=== PATIENT | female | born 1985 | race Caucasian/White ===

== ENCOUNTER 2016-07-20 14:00 | Inpatient (IN) | payer MEDICAID, OTHER ==
[2016-07-20] MEDS ORDERED: Sodium Chloride 0.9% 1000 ML 1,000 ML ONE ×2 (14:39→17:33)
[2016-07-20] MEDS ORDERED: Sodium Chloride 0.9% 1000 ML 1,000 ML IV STA ×2 (14:40→17:32)
--- NOTE | 2016-07-20 15:12 | ERPHSYRPT ---
- History of Present Illness Time Seen by Provider: 07/20/16 15:06 Source: patient Exam Limitations: no limitations Patient Subjective Stated Complaint: cough, left lateral rib pain for a few days. n/v/d today Triage Nursing Assessment: ambulated to room per self. skin w/d, pale. resp nonlabored. abd soft. left lateral ribs hurt with deep breath Physician History: The patient is a 31-year-old female who is 17 weeks complains of a cough for one week that has worsened the last 3 days. For the last 3 days she also has experienced nausea vomiting and diarrhea. She has some mild left- sided abdominal pain that is high up near the chest that hurts to take a deep breath. She is a little bit lightheaded. No influenza vaccine. Fever. Timing/Duration: week(s) (1) Cough Quality/Degree: productive cough (brown) Possible Cause: occasional episodes Modifying Factors: Improves With: coughing, deep breath Associated Symptoms: fever, cough, sore throat Allergies/Adverse Reactions: No Known Drug Allergies Allergy (Verified 07/20/16 14:34) Home Medications: Vits W-Ca,Fe,FA(<1Mg) [] 1 each PO DAILY 07/20/16 [History] Hx Tetanus, Diphtheria Vaccination/Date Given: No (unknown) Hx Influenza Vaccination/Date Given: No Hx Pneumococcal Vaccination/Date Given: No - Review of Systems Constitutional: Fever Eyes: No Symptoms Ears, Nose, & Throat: Throat Pain Respiratory: Cough Cardiac: Chest Pain Abdominal/Gastrointestinal: Abdominal Pain, Nausea, Vomiting, Diarrhea Genitourinary Symptoms: , No Dysuria Musculoskeletal: No Back Pain, No Neck Pain Skin: No Rash Neurological: No Dizziness, No Focal Weakness, No Sensory Changes Psychological: No Symptoms Endocrine: No Symptoms Hematologic/Lymphatic: No Symptoms Immunological/Allergic: No Symptoms All Other Systems: Reviewed and Negative - Past Medical History Pertinent Past Medical History: No - Past Surgical History Past Surgical History: Yes Gastrointestinal: Cholecystectomy Female Surgical History: Section Other Surgical History: - Social History Smoking Status: Current every day smoker How long have you smoked: 11 Exposure to second hand smoke: No Drug Use: none Patient Lives Alone: No - Female History Hx Now: Yes - Nursing Vital Signs Nursing Vital Signs: Initial Vital Signs Temperature 97.3 F Temperature Source Oral Pulse Rate 80 Respiratory Rate 16 Blood Pressure [] 104/60 Pain Intensity 7 - Physical Exam General Appearance: no apparent distress, alert Eye Exam: PERRL/EOMI, eyes nml inspection Ears, Nose, Throat Exam: normal ENT inspection, TMs normal, pharynx normal, moist mucous membranes Neck Exam: normal inspection, non-tender, supple, full range of motion Respiratory Exam: normal breath sounds, lungs clear, No respiratory distress Cardiovascular Exam: tachycardia Gastrointestinal/Abdomen Exam: soft, No tenderness Pelvic Exam: not done Rectal Exam: not done Back Exam: normal inspection, No CVA tenderness, No vertebral tenderness Extremity Exam: normal inspection, normal range of motion Neurologic Exam: alert, oriented x 3, cooperative, normal mood/affect, sensation nml, No motor deficits Skin Exam: normal color, warm, dry, No rash Lymphatic Exam: No adenopathy SpO2 Interpretation: normal SpO2: 99 Oxygen Delivery: Room Air - Radiology Exams Chest X-ray Interpretation: Teleradiologist Report, Pneumonia (LLL pneumonia) Ordered Tests: Active Orders 24 hr Category Date Time Status IV Insertion STAT Care 07/20/16 15:15 Active CHEST 2 VIEWS (PA AND LAT) Stat Exams 07/20/16 16:22 Taken BMP Stat Lab 07/20/16 15:27 Completed CBC W DIFF Stat Lab 07/20/16 15:27 Completed Lactic Acid Stat Lab 07/20/16 16:01 Completed Manual Differential NC Stat Lab 07/20/16 15:27 Completed UA W/ MICROSCOPIC Stat Lab 07/20/16 15:16 Completed Medication Summary Generic Name Dose Route Start Last Admin Trade Name Freq PRN Reason Stop Dose Admin Sodium Chloride 1,000 mls @ 999 mls/hr 07/20/16 17:32 07/20/16 18:08 Sodium Chloride 0.9% 1000 Ml IV 07/20/16 18:32 999 mls/hr .Q1H1M STA Administration Discontinued Medications Generic Name Dose Route Start Last Admin Trade Name Freq PRN Reason Stop Dose Admin Sodium Chloride 1,000 mls @ 999 mls/hr 07/20/16 14:40 07/20/16 14:43 Sodium Chloride 0.9% 1000 Ml IV 07/20/16 15:40 999 mls/hr .Q1H1M STA Administration Sodium Chloride Confirm 07/20/16 14:39 Sodium Chloride 0.9% 1000 Ml Administered 07/20/16 14:40 Dose 1,000 mls @ ud .ROUTE .STK-MED ONE Ceftriaxone Sodium/Dextrose 50 mls @ 100 mls/hr 07/20/16 17:24 07/20/16 17:31 Rocephin 1 Gm-D5w 50 Ml Bag IV 07/20/16 17:53 100 mls/hr STAT ONE Administration Ceftriaxone Sodium/Dextrose Confirm 07/20/16 17:27 Rocephin 1 Gm-D5w 50 Ml Bag Administered 07/20/16 17:28 Dose 50 mls @ ud IV .STK-MED ONE Sodium Chloride Confirm 07/20/16 17:33 Sodium Chloride 0.9% 1000 Ml Administered 07/20/16 17:34 Dose 1,000 mls @ ud .ROUTE .STK-MED ONE Ondansetron HCl 4 mg 07/20/16 15:16 07/20/16 15:24 Zofran 4 Mg/2 Ml Vial IV 07/20/16 15:17 4 mg STAT ONE Administration Ondansetron HCl Confirm 07/20/16 15:22 Zofran 4 Mg/2 Ml Vial Administered 07/20/16 15:23 Dose 4 mg .ROUTE .STK-MED ONE Lab/Rad Data: Laboratory Result Diagrams 07/20/16 15:27 07/20/16 15:27 Laboratory Results 07/20/16 07/20/16 07/20/16 Range/Units 16:01 15:27 15:27 WBC (4.0-10.5) K/mm3 RBC (4.1-5.4) M/mm3 Hgb (12.0-16.0) gm/dl Hct (35-47) % MCV (78-100) fl MCH (26-32) pg MCHC (32-36) g/dl RDW (11.5-14.0) % Plt Count (150-450) K/mm3 MPV (6-9.5) fl Segmented Neutrophils (36.0-66.0) % Band Neutrophils (0.0-2.0) % Lymphocytes (Manual) (24-44) % Platelet Estimate (NORMAL) Poikilocytosis Anisocytosis Sodium 135 L (136-145) mEq/L Potassium 3.5 (3.5-5.1) mEq/L Chloride 96 L (98-107) mEq/L Carbon Dioxide 15.2 L* (21-32) mEq/L Anion Gap 27.1 H (5-15) MEQ/L BUN 21 H (9-20) mg/dL Creatinine 1.36 H (0.55-1.30) mg/dl Estimated GFR 49 ML/MIN Glucose 69 L (70-110) MG/DL Lactic Acid 4.6 H (0.4-2.0) Calcium 9.3 (8.5-10.1) mg/dL Ur Collection Type Urine Color (YELLOW) Urine Appearance (CLEAR) Urine pH (5-6) Ur Specific [place] (1.005-1.025) Urine Protein (Negative) Urine Glucose (UA) (NEGATIVE) mg/dL Urine Ketones (NEGATIVE) Urine Nitrite (NEGATIVE) Urine Bilirubin (NEGATIVE) Urine Urobilinogen (0-1) mg/dL Urine WBC (Auto) (NEGATIVE) Urine RBC (Auto) (0-5) Arthur/ul Urine Microscopic RBC (0-2) /HPF Urine Microscopic WBC (0-5) /HPF Ur Epithelial Cells (FEW) /HPF Urine Bacteria (NEGATIVE) /HPF Resp Infection Panel POSITIVE (Negative) Specimen Received 07/20/16 07/20/16 Range/Units 15:27 15:16 WBC 24.8 H (4.0-10.5) K/mm3 RBC 3.54 L (4.1-5.4) M/mm3 Hgb 11.1 L (12.0-16.0) gm/dl Hct 32.6 L (35-47) % MCV 92.1 (78-100) fl MCH 31.3 (26-32) pg MCHC 34.0 (32-36) g/dl RDW 13.7 (11.5-14.0) % Plt Count 181 (150-450) K/mm3 MPV 12.3 H (6-9.5) fl Segmented Neutrophils 88 H (36.0-66.0) % Band Neutrophils 6 H (0.0-2.0) % Lymphocytes (Manual) 6 L (24-44) % Platelet Estimate NORMAL (NORMAL) Poikilocytosis 1+ Anisocytosis 1+ Sodium (136-145) mEq/L Potassium (3.5-5.1) mEq/L Chloride (98-107) mEq/L Carbon Dioxide (21-32) mEq/L Anion Gap (5-15) MEQ/L BUN (9-20) mg/dL Creatinine (0.55-1.30) mg/dl Estimated GFR ML/MIN Glucose (70-110) MG/DL Lactic Acid (0.4-2.0) Calcium (8.5-10.1) mg/dL Ur Collection Type CLEAN CATCH Urine Color YELLOW (YELLOW) Urine Appearance CLOUDY (CLEAR) Urine pH 5.0 (5-6) Ur Specific [place] >=1.030 (1.005-1.025) Urine Protein 100 (Negative) Urine Glucose (UA) NEGATIVE (NEGATIVE) mg/dL Urine Ketones TRACE (NEGATIVE) Urine Nitrite NEGATIVE (NEGATIVE) Urine Bilirubin SMALL (NEGATIVE) Urine Urobilinogen 0.2 (0-1) mg/dL Urine WBC (Auto) NEGATIVE (NEGATIVE) Urine RBC (Auto) MODERATE (0-5) Arthur/ul Urine Microscopic RBC 5-10 (0-2) /HPF Urine Microscopic WBC 2-5 (0-5) /HPF Ur Epithelial Cells MANY (FEW) /HPF Urine Bacteria MANY (NEGATIVE) /HPF Resp Infection Panel (Negative) Specimen Received 0204 1530 - Progress Progress: improved Air Movement: good Blood Culture(s) Obtained: Yes Antibiotics given: Yes Discussed with : Serge Will see patient in: hospital (full admit) Counseled pt/family regarding: lab results, diagnosis, rad results - Departure Time of Disposition: 18:22 Departure Disposition: In-patient Admission Clinical Impression: Pneumonia, Sepsis Condition: Good Critical Care Time: Yes Critical Care Time(excluding separately billable procedures): 30-74 minutes
[2016-07-20] MEDS ORDERED: Zofran 4 MG/2 ML VIAL IV ONE (15:16)
[2016-07-20] MEDS ORDERED: Zofran 4 MG/2 ML VIAL ONE (15:22)
[2016-07-20 15:29] LABS: Mean Cell Volume 92.1 fl (78-100); Mean Platelet Volume 12.3 fl (6-9.5); Platelet Count 181 K/mm3 (150-450); Red Blood Count 3.54 M/mm3 (4.1-5.4); Red Cell Distribution Width 13.7 % (11.5-14.0); White Blood Count 24.8 K/mm3 (4.0-10.5)
[2016-07-20 15:48] LABS: ANION GAP 27.1 MEQ/L (5-15); Potassium 3.5 mEq/L (3.5-5.1)
[2016-07-20 15:52] LABS: Carbon Dioxide 15.2 mEq/L (21-32); Mean Corpuscular Hemoglobin 31.3 pg (26-32)
[2016-07-20 16:04] LABS: ANISOCYTOSIS 1+; BAND 6 % (0.0-2.0); Platelet Estimate NORMAL (NORMAL); Poikilocytosis 1+; Total Cells Counted 100
[2016-07-20 16:08] LABS: Collection Type CLEAN CATCH
[2016-07-20 16:09] LABS: COMPLETE URINE MICROSCOPIC? YES
[2016-07-20 16:21] LABS: Bacteria MANY /HPF (NEGATIVE); Epithelial Cells MANY /HPF (FEW)
[2016-07-20] MEDS ORDERED: ROCEPHIN 1 Gm-D5w 50 ml Bag** 50 ML IV ONE ×2 (17:24→17:27)
[2016-07-20] MEDS ORDERED: TYLENOL EXTRA STRENGTH 500 MG ONE (18:27)
[2016-07-20] MEDS: TYLENOL EXTRA STRENGTH 500 MG PO PRN (18:28)
[2016-07-20] MEDS ORDERED: Zofran 4 MG/2 ML VIAL IV PRN (19:25)
[2016-07-20] MEDS ORDERED: Zithromax 500 MG/ 250 ML NaCl Premix 250 ML IV ONE (19:59)
[2016-07-20] MEDS: Lactated Ringers 1,000 ML IV SCH (20:07)
--- NOTE | 2016-07-20 20:46 | XRAY ---
Indication: Cough. Comparison: September 13, 2011 PA/lateral chest demonstrates new left lower lobe superior segment consolidating airspace disease. Remaining heart, lungs, and bony thorax unremarkable. Comment: Preliminary electronic report was generated for the ordering clinician at 1655 hrs. on July 20, 2016.
[2016-07-21] MEDS: TYLENOL EXTRA STRENGTH 500 MG PO PRN ×2 (02:02→18:26)
[2016-07-21] MEDS: Lactated Ringers 1,000 ML IV SCH ×2 (05:15→13:20)
[2016-07-21 05:39] LABS: BASOPHIL % 0.1 % (0.0-0.4); Eosinophil % 0.8 % (0.00-5.0); Granulocytes % 84.9 % (36.0-66.0); Mean Cell Volume 92.8 fl (78-100); Mean Corpuscular Hemoglobin 31.3 pg (26-32); Mean Platelet Volume 11.4 fl (6-9.5); Monocytes % 3.2 % (0.0-12.0); Platelet Count 182 K/mm3 (150-450); Red Blood Count 2.65 M/mm3 (4.1-5.4); Red Cell Distribution Width 13.4 % (11.5-14.0)
[2016-07-21 05:57] LABS: ANION GAP 13.2 MEQ/L (5-15); BLOOD UREA NITROGEN 15 mg/dL (9-20); CHLORIDE 106 mEq/L (98-107); Carbon Dioxide 23.3 mEq/L (21-32); Glucose 72 MG/DL (70-110); Potassium 3.2 mEq/L (3.5-5.1); SODIUM 139 mEq/L (136-145)
--- NOTE | 2016-07-21 09:44 | PCM.HP ---
History of Present Illness - Chief Complaint Chief Complaint: pneumonia History of Present Illness: is a 31 year old at 17 wks EGA who presented to the ER with a 3 day history of cough productive of brown sputum. She has had fever as well at home, no vaginal bleeding, change in bowel habits or vomiting. - Review of Systems Constitutional: Fever Respiratory: Cough Cardiac: No Chest Pain, No Edema, No Syncope Abdominal/Gastrointestinal: No Abdominal Pain, No Nausea, No Vomiting, No Diarrhea Genitourinary Symptoms: No Dysuria Skin: No Rash Medications & Allergies Home Medications: Home Medication List Vits W-Ca,Fe,FA(<1Mg) [] 1 each PO DAILY 07/20/16 [History Confirmed 07/20/16] Allergies/Adverse Reactions: Allergies Allergy/AdvReac Type Severity Reaction Status Date / Time No Known Drug Allergies Allergy Verified 07/20/16 14:34 - Past Medical History Past Medical History: No Neurological History: No Pertinent History ENT History: No Pertinent History Cardiac History: No Pertinent History Respiratory History: No Pertinent History Endocrine Medical History: Hypothyroidism Musculoskelatal History: No Pertinent History GI Medical History: No Pertinent History History: No Pertinent History Pyscho-Social History: No Pertinent History Reproductive Disorders: No Pertinent History - Female History Are you now?: Yes - Past Surgical History Past Surgical History: Yes Neuro Surgical History: No Pertinent History Cardiac History: No Pertinent History Respiratory Surgery: No Pertinent History GI Surgical History: Cholecystectomy Female Surgical History: Section, Other Other Surgical History: LEAP procedure folowing , - Social History Smoking Status: Current every day smoker How long have you smoked: 11 Exposure to second hand smoke: No Alcohol: None Drug Use: none - Physical Exam Vital Signs: Vital Signs - 24 hr Temp Pulse Resp BP Pulse Ox 07/21/16 08:00 97.8 F 109 H 18 105/62 96 07/21/16 04:00 97.9 F 98 H 22 90/52 96 07/21/16 00:01 108 H 07/21/16 00:00 98.1 F 108 H 18 104/56 96 07/20/16 20:30 20 07/20/16 20:29 96 07/20/16 19:33 98.2 F 127 H 20 82/43 97 07/20/16 18:28 99 07/20/16 18:28 100 F 07/20/16 18:13 140 H 40 H 90/32 100 07/20/16 15:59 80 16 104/60 99 07/20/16 15:25 125 H 22 104/56 98 07/20/16 14:14 97.3 F 145 H 18 112/58 98 General Appearance: no apparent distress, alert Respiratory Exam: rhonchi Cardiovascular Exam: regular rate/rhythm, normal heart sounds, normal peripheral pulses Gastrointestinal/Abdomen Exam: soft, normal bowel sounds, No tenderness, No mass Extremity Exam: normal inspection, normal range of motion, pelvis stable Skin Exam: normal color, warm, dry, No rash Results - Labs Lab/Micro Results: Lab Results-Last 24 Hours 07/21/16 07/21/16 Range/Units 05:05 05:05 WBC 13.0 H (4.0-10.5) K/mm3 RBC 2.65 L (4.1-5.4) M/mm3 Hgb 8.3 L (12.0-16.0) gm/dl Hct 24.6 L (35-47) % MCV 92.8 (78-100) fl MCH 31.3 (26-32) pg MCHC 33.7 (32-36) g/dl RDW 13.4 (11.5-14.0) % Plt Count 182 (150-450) K/mm3 MPV 11.4 H (6-9.5) fl Gran % 84.9 H (36.0-66.0) % Lymphocytes % 11.0 L (24.0-44.0) % Monocytes % 3.2 (0.0-12.0) % Eosinophils % 0.8 (0.00-5.0) % Basophils % 0.1 (0.0-0.4) % Basophils # 0.01 (0-0.4) Sodium 139 (136-145) mEq/L Potassium 3.2 L (3.5-5.1) mEq/L Chloride 106 (98-107) mEq/L Carbon Dioxide 23.3 (21-32) mEq/L Anion Gap 13.2 (5-15) MEQ/L BUN 15 (9-20) mg/dL Creatinine 0.78 (0.55-1.30) mg/dl Estimated GFR > 60 ML/MIN Glucose 72 (70-110) MG/DL Calcium 8.3 L (8.5-10.1) mg/dL Assessment/Plan (1) Pneumonia Current Visit: Yes Status: Acute Assessment & Plan: continue rocephin and zithromax, wbc drastically improved and no fever overnight. patient is maintaining her oxygen saturation and looks stable. ok to transfer to med/surg floor. will replace potassium today with po, repeat labs in am. anemia secondary to dilution from fluids Code(s): J18.9 - PNEUMONIA, UNSPECIFIED ORGANISM (2) Current Visit: Yes Status: Acute Code(s): Z33.1 - STATE, INCIDENTAL
[2016-07-21] MEDS: ROCEPHIN 1 Gm-D5w 50 ml Bag** 50 ML IV SCH (09:57)
[2016-07-21] MEDS ORDERED: K-LYTE 25 MEQ PO ONE (10:00)
[2016-07-21] MEDS ORDERED: Zithromax 500 MG/ 250 ML NaCl Premix 250 ML IV SCH ×2 (10:00→22:00)
[2016-07-21] MEDS: THERAGRAN MULTIVITAMIN PO SCH (10:52)
[2016-07-21] MEDS: FOLATE 1 MG PO SCH (10:53)
[2016-07-22] MEDS: Lactated Ringers 1,000 ML IV SCH (02:06)
[2016-07-22] MEDS: TYLENOL EXTRA STRENGTH 500 MG PO PRN (05:06)
[2016-07-22 05:51] LABS: Mean Cell Volume 93.3 fl (78-100); Mean Platelet Volume 11.8 fl (6-9.5); Platelet Count 197 K/mm3 (150-450); Red Cell Distribution Width 13.8 % (11.5-14.0); White Blood Count 9.9 K/mm3 (4.0-10.5)
[2016-07-22 06:18] LABS: Mean Corpuscular Hemoglobin 30.6 pg (26-32)
[2016-07-22 06:21] LABS: ALBUMIN 1.9 g/dL (3.4-5.0); ALKALINE PHOSPHATASE 60 U/L (46-116); ANION GAP 15.3 MEQ/L (5-15); BILIRUBIN,TOTAL 0.1 mg/dL (0.2-1.0); BLOOD UREA NITROGEN 10 mg/dL (9-20); CHLORIDE 107 mEq/L (98-107); Carbon Dioxide 21.7 mEq/L (21-32); Glucose 73 MG/DL (70-110); Potassium 3.8 mEq/L (3.5-5.1); SGOT/AST 19 U/L (15-37); SGPT/ALT 12 U/L (12-78); SODIUM 140 mEq/L (136-145)
[2016-07-22 06:48] LABS: BAND 3 % (0.0-2.0); Eosinophil 2 % (0.00-3.0); Total Cells Counted 100
[2016-07-22 06:49] LABS: Platelet Estimate NORMAL (NORMAL)
[2016-07-22 06:50] LABS: Hypochromia 1+
--- NOTE | 2016-07-22 07:12 | PCM.DCORD ---
- Discharge Discharge Date: 07/22/16 Condition: Good Prescriptions: New Amoxicillin/Potassium Clav [Augmentin 875 mg (Amox Tr-K Clv 875-125 mg)] 1 each PO BID #14 tablet Continue Vits W-Ca,Fe,FA(<1Mg) [] 1 each PO DAILY Follow up with: AP PORRAS [Primary Care Provider] -
[2016-07-22] MEDS: ROCEPHIN 1 Gm-D5w 50 ml Bag** 50 ML IV SCH (08:02)
[2016-07-22] MEDS: THERAGRAN MULTIVITAMIN PO SCH (08:02)
[2016-07-22] MEDS: FOLATE 1 MG PO SCH (08:02)
--- NOTE | 2016-07-22 09:42 | DS ---
DISCHARGE DIAGNOSIS: 1. PNEUMONIA FROM RESPIRATORY SYNCYTIAL VIRUS. BRIEF HISTORY: The patient is a 31 y/o WF who presented to the Emergency Room with cough, chest pain, fever, nausea, and vomiting. She was evaluated in the Emergency Room and found to have respiratory syncytial virus infection on the nasal swab. The influenza swab was negative. X-ray proved the patient to have a developing pneumonia. The patient was admitted to the hospital for evaluation and management. HOSPITAL COURSE: The patient was admitted to the hospital. Begun on IV Rocephin and Zithromax. She was given IV fluid support. She was given Zofran for nausea. The patient's initial lab study showed a UA with specific gravity of 1.030, 2-5 WBC per high powered field. Lactic acid was elevated to 4.6. As indicated above, the respiratory syncytial virus swab was positive. Her metabolic panel showed a glucose of 69, BUN 21, creatinine 1.36. CO2 was 15.2. Her WBC was 24,800 with Hgb of 11.1, platelet count 181,000. She did have 6 bands and 88 polys. The patient responded nicely to the above treatment. Her fever went away. Her WBC had dropped down to 9900 on the morning of 07/22/16. She was sitting upright in bed looking good. She had been able to eat again and her O2 saturations were running in the mid 90s on room air. She was felt to be ready for discharge home. Due to left shift and the bacterial count, the patient was felt to need to continue oral antibiotics although the initial infection was due to the respiratory syncytial virus. She was given Augmentin 875 bid for an additional 7 days and asked to follow-up in the office in a week or to return to the hospital if she had any further problems in the interim.
[2016-07-22 11:06] VITALS: BP 125/81; PULSE 87; O2SAT 95
== END 2016-07-22 10:50 | disposition home or self-care (01) | DRG 195 ==
LOC: ED 14:00 → ICU 19:24 → MED SURG 07-21 12:22
PROVIDERS: ADMIT Family Medicine; ATTEND Family Medicine
DX: J12.1 Respiratory syncytial virus pneumonia (principal); Z33.1 Pregnant state, incidental; E03.9 Hypothyroidism, unspecified; Z72.0 Tobacco use
CPT/HCPCS: 36000; 36415; 71020; 80048; 80053; 81000; 83605; 85025; 87040; 87631; 94760; 96360; 96361; 96374; 99284; 99285; J0456; J0696; J2405

== ENCOUNTER 2016-11-08 20:34 | Observation (INO) | payer MEDICAID ==
[2016-11-08 21:54] LABS: COMPLETE URINE MICROSCOPIC? YES; Collection Type CCMS; Ph 6.5 (5-6)
[2016-11-08 22:02] LABS: Bacteria FEW /HPF (NEGATIVE); Epithelial Cells MANY /HPF (FEW)
[2016-11-09 00:12] VITALS: BP 126/70; PULSE 89
== END 2016-11-08 22:45 | disposition home or self-care (01) ==
LOC: OB 20:34
PROVIDERS: ADMIT Family Medicine; ATTEND Family Medicine
DX: Z34.83 Encounter for supervision of other normal pregnancy, third trimester (principal)
CPT/HCPCS: 59025; 80307; 81000; G0378

== ENCOUNTER 2016-11-30 20:51 | Observation (INO) | payer MEDICAID ==
[2016-11-30 21:37] VITALS: BP 132/67; PULSE 74; O2SAT 98
[2016-11-30 22:14] LABS: Bilirubin NEGATIVE (NEGATIVE); Blood NEGATIVE Ery/ul (0-5); COMPLETE URINE MICROSCOPIC? NO; Collection Type CLEAN CATCH; Glucose NEGATIVE (NEGATIVE); Leukocyte Esterase NEGATIVE (NEGATIVE)
== END 2016-11-30 22:49 | disposition home or self-care (01) ==
LOC: UNDOADMOB 20:51 → OB 20:51 → UNDODISOB 22:49
PROVIDERS: ADMIT Family Medicine; ATTEND Family Medicine
DX: Z34.83 Encounter for supervision of other normal pregnancy, third trimester (principal)
CPT/HCPCS: 80307; 81002; G0378

== ENCOUNTER 2016-12-05 11:38 | Observation (INO) | payer MEDICAID ==
[2016-12-05 12:31] LABS: Collection Type CLEAN CATCH
[2016-12-05 12:32] LABS: Bilirubin NEGATIVE (NEGATIVE); Blood NEGATIVE Ery/ul (0-5); COMPLETE URINE MICROSCOPIC? YES; Glucose NEGATIVE (NEGATIVE); Leukocyte Esterase 1+ (NEGATIVE)
[2016-12-05 12:40] LABS: Bacteria MODERATE /HPF (NEGATIVE); Epithelial Cells MANY /HPF (FEW); Mucus SLIGHT /HPF (NEGATIVE)
[2016-12-05 13:51] VITALS: BP 136/78; PULSE 77
== END 2016-12-05 13:45 | disposition home or self-care (01) ==
LOC: UNDOADMOB 11:38 → MED SURG 11:38 → UNDODISOB 13:45
PROVIDERS: ADMIT Family Medicine; ATTEND Family Medicine
DX: Z34.83 Encounter for supervision of other normal pregnancy, third trimester (principal)
CPT/HCPCS: 80307; 81000; G0378

== ENCOUNTER 2016-12-17 00:08 | Observation (INO) | payer MEDICAID ==
[2016-12-17 00:56] VITALS: BP 148/65; PULSE 80
[2016-12-17 01:03] LABS: Bilirubin NEGATIVE (NEGATIVE); Blood NEGATIVE Ery/ul (0-5); COMPLETE URINE MICROSCOPIC? NO; Collection Type CLEAN CATCH; Glucose NEGATIVE (NEGATIVE); Leukocyte Esterase NEGATIVE (NEGATIVE)
== END 2016-12-17 01:55 | disposition home or self-care (01) ==
LOC: OB 00:08
PROVIDERS: ADMIT Family Medicine; ATTEND Family Medicine
DX: Z34.81 Encounter for supervision of other normal pregnancy, first trimester (principal)
CPT/HCPCS: 80307; 81002; G0378

== ENCOUNTER 2016-12-18 13:17 | Observation (INO) | payer MEDICAID ==
[2016-12-18] MEDS ORDERED: Lactated Ringers 1,000 ML IV ONE (15:39)
[2016-12-18] MEDS ORDERED: TYLENOL EXTRA STRENGTH 500 MG PO PRN (15:40)
[2016-12-18 18:12] VITALS: BP 146/72; PULSE 60
== END 2016-12-18 18:45 | disposition home or self-care (01) ==
LOC: OB 13:17
PROVIDERS: ADMIT Family Medicine; ATTEND Family Medicine
DX: Z34.83 Encounter for supervision of other normal pregnancy, third trimester (principal)
CPT/HCPCS: 80307; G0378; A9270-GY

== ENCOUNTER 2016-12-19 09:33 | Observation (INO) | payer MEDICAID ==
[2016-12-19 10:11] VITALS: BP 139/82; PULSE 73
[2016-12-19] MEDS ORDERED: TYLENOL 325 MG PO ONE (10:51)
== END 2016-12-19 11:10 | disposition home or self-care (01) ==
LOC: OB 09:33
PROVIDERS: ADMIT Family Medicine; ATTEND Family Medicine
DX: Z34.83 Encounter for supervision of other normal pregnancy, third trimester (principal)
CPT/HCPCS: 80307; G0378; A9270-GY

== ENCOUNTER 2016-12-20 00:03 | Inpatient (IN) | payer MEDICAID ==
[2016-12-20] MEDS ORDERED: Lactated Ringers 1,000 ML IV ONE ×2 (01:01→06:00)
[2016-12-20 01:21] LABS: INR 0.94 (0.8-3.0); PROTIME 10.6 SECONDS (9.95-12.35)
[2016-12-20 01:24] LABS: PTT 25.4 SECONDS (25.3-37.0)
[2016-12-20 01:28] LABS: Mean Cell Volume 91.3 fl (78-100); Mean Platelet Volume 13.9 fl (6-9.5); Platelet Count 118 K/mm3 (150-450); Red Blood Count 3.66 M/mm3 (4.1-5.4); Red Cell Distribution Width 13.6 % (11.5-14.0); White Blood Count 7.1 K/mm3 (4.0-10.5)
[2016-12-20 01:35] LABS: Mean Corpuscular Hemoglobin 29.7 pg (26-32)
[2016-12-20 02:19] LABS: Collection Type CLEAN CATCH
[2016-12-20 02:20] LABS: Bacteria FEW /HPF (NEGATIVE); Bilirubin NEGATIVE (NEGATIVE); Blood NEGATIVE Ery/ul (0-5); COMPLETE URINE MICROSCOPIC? YES; Epithelial Cells MODERATE /HPF (FEW); Glucose NEGATIVE (NEGATIVE); Leukocyte Esterase TRACE (NEGATIVE)
[2016-12-20] MEDS ORDERED: BICITRA 30 ML CUP PO SCH (06:00)
[2016-12-20] MEDS ORDERED: Reglan 10 MG/2 ML IV SCH (06:00)
[2016-12-20] MEDS ORDERED: Lactated Ringers 1,000 ML IV SCH (06:00)
[2016-12-20] MEDS ORDERED: Pepcid 20 MG VIAL IV SCH (06:00)
[2016-12-20] MEDS ORDERED: Lactated Ringers 2,000 ML IV ONE (06:49)
[2016-12-20] MEDS ORDERED: Lactated Ringers 0 ML IV ONE (07:16)
[2016-12-20] MEDS ORDERED: KEFZOL 1 GM ONE (07:16)
[2016-12-20] MEDS ORDERED: PHENYLEPHRINE HCL IV ONE (08:00)
[2016-12-20] MEDS ORDERED: Astramorph-Pf 5 MG/10 ML IV ONE (08:00)
[2016-12-20] MEDS ORDERED: Versed 2 MG/2 ML Injection IV ONE (08:00)
[2016-12-20] MEDS ORDERED: Pitocin 10 UNITS/ML IV ONE (08:00)
[2016-12-20] MEDS ORDERED: TYLENOL EXTRA STRENGTH 500 MG PO PRN (08:24)
[2016-12-20] MEDS ORDERED: Dulcolax 10 MG SUPP PR PRN (08:24)
[2016-12-20] MEDS ORDERED: Phenergan 25 MG INJ IM PRN (08:24)
[2016-12-20] MEDS ORDERED: Nubain 10 MG/ML IV PRN (08:32)
[2016-12-20] MEDS ORDERED: CLARITIN 10 MG PO PRN (08:32)
[2016-12-20] MEDS ORDERED: Narcan 0.4 MG/ML IV PRN (08:32)
[2016-12-20] MEDS ORDERED: HOLD NARCOTIC ANALGESICS AND SEDATIVES X24 HR MC PRN (08:32)
[2016-12-20] MEDS ORDERED: DEMEROL 50 MG IV PRN (08:32)
[2016-12-20] MEDS ORDERED: MORPHINE SULFATE 2 MG INJ IV PRN (08:32)
[2016-12-20 08:55] LABS: Collection Type CATH
[2016-12-20 08:56] LABS: Bilirubin NEGATIVE (NEGATIVE); Glucose NEGATIVE (NEGATIVE); Leukocyte Esterase TRACE (NEGATIVE)
[2016-12-20 09:10] LABS: COMPLETE URINE MICROSCOPIC? YES
--- NOTE | 2016-12-20 10:53 | OP ---
SURGERY DATE/TIME: 12/20/2016728 PREOPERATIVE DIAGNOSIS: Term intrauterine , previous section. POSTOPERATIVE DIAGNOSIS: Term intrauterine , previous section, delivered. PROCEDURE: Repeat lower uterine segment transverse incision section. SURGEON: Dr. Mcdaniels. ANESTHESIA: Spinal. HISTORY: The patient is a 31 year old white female who presents now for elective repeat section. She is at 39 weeks gestation. She was appraised of the risks of the procedure including the risk of wound infection, possible bleeding requiring transfusion, possible injury to any intra-abdominal organs. The patient verbalized her understanding and desired to have the procedure performed. DESCRIPTION OF PROCEDURE: The patient was prepped and draped in the supine position. After adequate regional anesthesia was confirmed, a Pfannenstiel incision was made over the previous scar and carried down sharply through the fascia which was divided in a horizontal fashion. The rectus muscles were then bluntly and sharply dissected away from the overlying fascia and bluntly retracted laterally. The peritoneum was then entered. A bladder flap was developed and the bladder was retracted inferiorly. The uterus was scored in a horizontal fashion and entered in the midline. The wound was then extended using bandage scissors. Amnionotomy was performed and the baby was delivered in cephalic position. The cord was doubly clamped and divided between the clamps. The baby was handed off for further care. The placenta was then manually removed from the uterus. The uterus was then delivered through the abdominal wound and wrapped in moist gauze. The wound edges were then reapproximated using 1-0 chromic suture in a running, interlocking fashion. The cul-de-sac area was then swabbed clear of blood and amniotic fluid and the uterus was replaced in the abdominal cavity. Paracolic gutters were also swabbed clear of blood of amniotic fluid. The peritoneum was then repaired using 3-0 chromic sutures in running fashion. The fascia was repaired using 0 Vicryl suture in running fashion. The skin edges were reapproximated using maria e. The sponge, needle and instrument counts were reported as correct at the end of the procedure. Estimated blood loss was 200 cc. The patient did receive 2 gm of Cefazolin intraoperatively after the cord was clamped. The patient was taken back to the recovery room in good condition.
[2016-12-20] MEDS: Zofran 4 MG/2 ML VIAL IV PRN ×2 (11:51→13:58)
[2016-12-20] MEDS ORDERED: Adacel Vial IM ONE (13:00)
[2016-12-20] MEDS: Dextrose 5%-Lr IV Solution 1000 ML 1,000 ML IV SCH ×2 (13:19→21:53)
[2016-12-20] MEDS: BENADRYL 50 MG/ML IV PRN ×2 (15:33→21:42)
[2016-12-20] MEDS: Colace 100 MG PO SCH (21:41)
[2016-12-20] MEDS: MOTRIN 400 MG PO PRN (21:41)
[2016-12-20] MEDS: Mylicon 80MG PO PRN (21:41)
[2016-12-21] MEDS: PERCOCET TABLET 5/325MG PO PRN ×2 (01:43→06:02)
[2016-12-21] MEDS: MOTRIN 400 MG PO PRN ×3 (05:13→22:52)
[2016-12-21 05:52] LABS: Mean Cell Volume 93.2 fl (78-100); Mean Platelet Volume 14.4 fl (6-9.5); Platelet Count 105 K/mm3 (150-450); Red Blood Count 2.94 M/mm3 (4.1-5.4); Red Cell Distribution Width 13.7 % (11.5-14.0); White Blood Count 7.4 K/mm3 (4.0-10.5)
[2016-12-21 05:54] LABS: Mean Corpuscular Hemoglobin 30.2 pg (26-32)
[2016-12-21 07:53] VITALS: O2SAT 97
[2016-12-21] MEDS ORDERED: DEMEROL 75 MG IM PRN (08:00)
[2016-12-21] MEDS ORDERED: Restoril 15 MG PO PRN (08:24)
[2016-12-21] MEDS ORDERED: Ambien 10 MG PO PRN (08:24)
[2016-12-21] MEDS: FERREX 150 PO SCH (09:36)
[2016-12-21] MEDS: Colace 100 MG PO SCH ×2 (09:36→21:42)
[2016-12-21] MEDS: NORCO 5/325 MG PO PRN ×3 (10:07→20:36)
[2016-12-21] MEDS: Mylicon 80MG PO PRN (18:52)
[2016-12-22] MEDS: NORCO 5/325 MG PO PRN ×2 (01:06→07:56)
[2016-12-22] MEDS: MOTRIN 400 MG PO PRN (05:15)
[2016-12-22] MEDS: FERREX 150 PO SCH (07:56)
[2016-12-22] MEDS: Colace 100 MG PO SCH (07:56)
[2016-12-22 08:36] VITALS: BP 127/63; PULSE 85
--- NOTE | 2016-12-22 09:52 | PCM.DS ---
Discharge Summary Date of Admission: 12/20/16 00:03 Admitting Physician: AP MCDANIELS Consults: Consults on Case 12/20/16 00:00 Notify Anesthesia Provider ROUTINE Notify Physician OF ADMISSION Primary Care Provider: AP MCDANIELS Allergies Allergies No Known Drug Allergies Allergy (Verified 12/20/16 02:53) Hospital Summary - Hospital Course Hospital Course: patient had repeat by Dr Mcdaniels on 12/20 with no complications. pain well controlled, mild lochia, afebrile - Vitals & Intake/Output Vital Signs: Vital Signs Temperature 97.1 F 12/22/16 08:00 Pulse Rate 85 12/22/16 08:00 Respiratory Rate 18 12/22/16 08:00 Blood Pressure 127/63 12/22/16 08:00 O2 Sat by Pulse Oximetry 97 12/21/16 07:52 Intake & Output: Intake & Output 12/19/16 12/20/16 12/21/16 12/22/16 11:59 11:59 11:59 11:59 Intake Total 4615 1500 Output Total 1975 Balance 2640 1500 Weight 115.212 kg - Lab Result Diagrams: 12/21/16 05:05 Micro Results-Entire Visit: Microbiology 12/20/16 07:48 Urine Culture - Preliminary Urine, Catheterized NO GROWTH TO DATE Discharge Exam General Appearance: obese Neurologic Exam: alert, oriented x 3 Respiratory Exam: normal breath sounds, lungs clear, No respiratory distress Cardiovascular Exam: regular rate/rhythm, normal heart sounds Gastrointestinal/Abdomen Exam: soft, other (incision c/d/i well approximated with maria e intact), No tenderness, No mass Extremity Exam: normal inspection, normal range of motion Final Diagnosis/Problem List - Final Discharge Diagnosis/Problem (1) delivery delivered Current Visit: Yes Status: Acute - Discharge Disposition: Home, Self-Care Condition: Stable Prescriptions: New Hydrocodone/Acetaminophen [[place] 5-325 Tablet] 1 each PO Q4-6HPRN PRN #20 tablet PRN Reason: Pain Follow up with: AP MCDANIELS [Primary Care Provider] - 1 Week
== END 2016-12-22 11:20 | disposition home or self-care (01) | DRG 766 ==
LOC: OB 00:03
PROVIDERS: ADMIT Family Medicine; ATTEND Family Medicine
PROC: 10D00Z1 Extraction of Products of Conception, Low, Open Approach (ICD-10-PCS; principal; 2016-12-20)
DX: O34.211 Maternal care for low transverse scar from previous cesarean delivery (principal); Z3A.39 39 weeks gestation of pregnancy; Z37.0 Single live birth
CPT/HCPCS: 01961; 36415; 62322; 64425; 76942; 80307; 81000; 81002; 85027; 85610; 85730; 86850; 86900; 86901; 87086; 90471; 90715; 94799; G0378; J0690; J1200; J2250; J2274; J2370; J2405; J2590; L0625; A9270-GY

== ENCOUNTER 2017-06-06 23:54 | Emergency (ER) | payer MEDICAID, OTHER ==
[2017-06-07 00:07] VITALS: BP 166/103; PULSE 70; O2SAT 98
[2017-06-07] MEDS ORDERED: TORAdol 30 mg Injection IM ONE (00:17)
[2017-06-07] MEDS ORDERED: BENADRYL 50 MG/ML IM ONE (00:17)
[2017-06-07] MEDS ORDERED: Phenergan 25 MG INJ IM ONE (00:17)
[2017-06-07] MEDS ORDERED: BENADRYL 50 MG/ML ONE (00:23)
[2017-06-07] MEDS ORDERED: Phenergan 25 MG INJ ONE (00:23)
[2017-06-07] MEDS ORDERED: TORAdol 30 mg Injection ONE (00:23)
--- NOTE | 2017-06-07 00:24 | ERPHSYRPT ---
- History of Present Illness Time Seen by Provider: 06/07/17 00:18 Source: patient Exam Limitations: no limitations Patient Subjective Stated Complaint: Headache Triage Nursing Assessment: Headache x2 weeks, hx of complaint. Seen by PCP for complaint and given IM injections fo complaint with improvement but states pain is currently 5/10 and nothing is making it go away. Physician History: c/o migraine headache on left side of head for 2 weeks Timing/Duration: week(s) Quality: aching Head Pain Location: temporal Recent Head Trauma: frequent headaches Allergies/Adverse Reactions: shellfish derived Allergy (Intermediate, Verified 06/07/17 00:08) Hives Hx Tetanus, Diphtheria Vaccination/Date Given: No Hx Influenza Vaccination/Date Given: No Hx Pneumococcal Vaccination/Date Given: No Immunizations Up to Date: No - Review of Systems Constitutional: No Symptoms Eyes: No Symptoms Ears, Nose, & Throat: No Symptoms Respiratory: No Symptoms Cardiac: No Symptoms Abdominal/Gastrointestinal: Nausea Genitourinary Symptoms: No Symptoms Musculoskeletal: No Symptoms Skin: No Symptoms Neurological: Headache Psychological: No Symptoms - Past Medical History Pertinent Past Medical History: No Neurological History: No Pertinent History ENT History: No Pertinent History Cardiac History: No Pertinent History Respiratory History: No Pertinent History Endocrine Medical History: Hypothyroidism Musculoskeletal History: No Pertinent History GI Medical History: No Pertinent History History: No Pertinent History Psycho-Social History: No Pertinent History Female Reproductive Disorders: No Pertinent History - Past Surgical History Past Surgical History: Yes Neuro Surgical History: No Pertinent History Cardiac: No Pertinent History Respiratory: No Pertinent History Gastrointestinal: Cholecystectomy Musculoskeletal: No Pertinent History Female Surgical History: Section, Other Other Surgical History: LEAP procedure folowing , - Social History Smoking Status: Former smoker How long have you smoked: FORMER Exposure to second hand smoke: No Drug Use: none Patient Lives Alone: No - Female History Hx Last Menstrual Period: 05/11/2017 Hx Now: No - Nursing Vital Signs Nursing Vital Signs: Initial Vital Signs Temperature 97.5 F 06/07/17 00:01 Pulse Rate 70 06/07/17 00:01 Respiratory Rate 18 06/07/17 00:01 Blood Pressure 166/103 06/07/17 00:01 O2 Sat by Pulse Oximetry 98 06/07/17 00:01 Pain Scale Pain Intensity 5 - Physical Exam General Appearance: no apparent distress Eye Exam: PERRL/EOMI Ears, Nose, Throat Exam: normal ENT inspection, moist mucous membranes Neck Exam: normal inspection, supple, full range of motion, No meningismus Respiratory Exam: normal breath sounds, lungs clear Cardiovascular Exam: regular rate/rhythm, normal heart sounds Gastrointestinal/Abdominal Exam: soft, No tenderness, No distention Back Exam: normal inspection, normal range of motion Mental Status Exam: alert, oriented x 3, cooperative surgical appliance fitter Exam: normal speech, PERRL, No facial droop Coordination/Gait Exam: normal cerebellar function Motor/Sensory Exam: no motor deficit, no sensory deficit Skin Exam: normal color, warm, dry, No rash SpO2: 98 Oxygen Delivery: Room Air - Course Nursing assessment & vital signs reviewed: Yes - Progress Progress: improved Air Movement: good Counseled pt/family regarding: diagnosis, need for follow-up - Departure Time of Disposition: 00:26 Departure Disposition: Home Clinical Impression: Migraine Qualifiers: Migraine type: unspecified Status migrainosus presence: without status migrainosus Intractability: not intractable Qualified Code(s): G43.909 - Migraine, unspecified, not intractable, without status migrainosus Condition: Stable Critical Care Time: No Referrals: AP PORRAS [Primary Care Provider] - Instructions: Headache Additional Instructions: HEADACHE 1. After discharge from the emergency department, you should rest at home in a cool, dark, quiet place for 12-24 hours. 2. If any of the following signs or symptoms are noticed, you should be re- evaluated right away: A. Visual changes B. Stiff Neck C. Change in quality or location of pain D. Fever E. Recurrent vomiting 3. If pain medications were prescribed or given, they may cause drowsiness. Please follow the instructions given to you. Please take your medication as prescribed if given. If symptoms recur or get worse, come back to the emergency room if you cannot reach your primary care physician, or call your primary care physician for an appointment. Again if your symptoms get worse, come back to the emergency room. Thanks for visiting emergency room, and let us take care of you. Prescriptions: Sumatriptan Succinate [Imitrex 50 mg] 50 mg PO UD #5 tablet
== END 2017-06-07 00:54 | disposition home or self-care (01) ==
LOC: ED 23:54
DX: G43.909 Migraine, unspecified, not intractable, without status migrainosus (principal)
CPT/HCPCS: 96372; 99284; J1200; J1885; J2550

== ENCOUNTER 2019-02-08 21:23 | Emergency (ER) | payer OTHER | END 2019-02-08 23:10 | disposition home or self-care (01) | LOC: ED 21:23 ==

== ENCOUNTER 2021-05-02 17:35 | Emergency (ER) | payer OTHER ==
[2013-03-06 20:33] VITALS: BP 126/72
[2021-05-02] MEDS ORDERED: TORAdol 30 mg Injection IM ONE (18:11)
[2021-05-02] MEDS ORDERED: TORAdol 30 mg Injection ONE (18:23)
--- NOTE | 2021-05-02 18:40 | ERPHSYRPT ---
- History of Present Illness Time Seen by Provider: 05/02/21 17:50 Source: patient Exam Limitations: no limitations Patient Subjective Stated Complaint: R sided neck pain Triage Nursing Assessment: pt to ED c/o R sided neck pain x approx 1 week. pt denies injury, states pain started at rest. rates 10/10 that radiates to back of head. denies hx migraines. has seen PCP last week and was given steroids and muscle relaxers. called PCP Friday to schedule another appt for same sx and she can not be seen until 05/07/21. pt states pain is too severe to wait for this upcoming appt. A&Ox4. ambulatory with steady gate. Physician History: Patient is a 36-year-old female presents to our ED for evaluation of the right sided cervical paraspinal neck strain. Patient strained her right sided paraspinal muscle approximately 1 week ago. Patient was treated with a course of steroids and muscle relaxer. She did not receive a shoulder sling to decrease the tension load on the said muscle. Pain described as an ache that is localized. No radiation. Pain reproduced with neck movement and palpation. No midline neck pain. No fever. No photophobia. No trauma. No associated numbness tingling or dizziness. No lightheadedness. No blurred vision. Symptoms are mild to moderate in intensity. Patient voices no other complaints or concerns at this time. Timing/Duration: week(s) (1 week ago) Severity: moderate Modifying Factors: Improves With: medication, movement Associated Symptoms: denies symptoms, No shortness of breath, No diaphoresis, No fever, No loss of appetite, No syncope Allergies/Adverse Reactions: shellfish derived Allergy (Intermediate, Verified 05/02/21 17:54) Hives Hx Tetanus, Diphtheria Vaccination/Date Given: No Hx Influenza Vaccination/Date Given: No Hx Pneumococcal Vaccination/Date Given: No Immunizations Up to Date: No Travel Risk - International Travel Have you traveled outside of the country in past 3 weeks: No - Coronavirus Screening Are you exhibiting any of the following symptoms?: No Close contact with a COVID-19 positive Pt in past 14-21 Days: No - Vaccine Status Have you recieved a Covid-19 vaccination: No - Review of Systems Constitutional: No Symptoms, No Fever, No Chills Eyes: No Symptoms Ears, Nose, & Throat: No Symptoms Respiratory: No Symptoms, No Cough, No Dyspnea Cardiac: No Symptoms, No Chest Pain, No Edema, No Syncope Abdominal/Gastrointestinal: No Symptoms, No Abdominal Pain, No Nausea, No Vomiting, No Diarrhea Genitourinary Symptoms: No Symptoms, No Dysuria Musculoskeletal: No Symptoms, No Back Pain, No Neck Pain Skin: No Symptoms, No Rash Neurological: No Symptoms, No Dizziness, No Focal Weakness, No Sensory Changes Psychological: No Symptoms Endocrine: No Symptoms Hematologic/Lymphatic: No Symptoms Immunological/Allergic: No Symptoms All Other Systems: Reviewed and Negative - Past Medical History Pertinent Past Medical History: No Neurological History: No Pertinent History ENT History: No Pertinent History Cardiac History: No Pertinent History Respiratory History: No Pertinent History Endocrine Medical History: No Pertinent History Musculoskeletal History: No Pertinent History GI Medical History: No Pertinent History History: No Pertinent History Psycho-Social History: No Pertinent History Female Reproductive Disorders: No Pertinent History - Past Surgical History Past Surgical History: Yes Neuro Surgical History: No Pertinent History Cardiac: No Pertinent History Respiratory: No Pertinent History Gastrointestinal: Cholecystectomy Genitourinary: No Pertinent History Musculoskeletal: No Pertinent History Female Surgical History: Section, Tubal Ligation, Other Other Surgical History: LEAP procedure folowing , - Social History Smoking Status: Former smoker How long have you smoked: FORMER Exposure to second hand smoke: No Drug Use: none Patient Lives Alone: No - Female History Hx Last Menstrual Period: 04/16/21 Hx Now: No - Nursing Vital Signs Nursing Vital Signs: Initial Vital Signs Temperature 97.8 F 05/02/21 17:45 Pulse Rate 92 H 05/02/21 17:45 Respiratory Rate 20 05/02/21 17:45 Blood Pressure 151/117 05/02/21 17:45 O2 Sat by Pulse Oximetry 97 05/02/21 17:45 Pain Scale Pain Intensity 10 - Physical Exam General Appearance: no apparent distress, alert Eye Exam: PERRL/EOMI, eyes nml inspection Ears, Nose, Throat Exam: normal ENT inspection, TMs normal, pharynx normal, moist mucous membranes Neck Exam: normal inspection, non-tender, supple, full range of motion Respiratory Exam: normal breath sounds, lungs clear, airway intact, No respiratory distress Cardiovascular Exam: regular rate/rhythm, normal heart sounds, normal peripheral pulses Gastrointestinal/Abdomen Exam: soft, normal bowel sounds, No tenderness, No mass Back Exam: normal inspection, normal range of motion, No CVA tenderness, No vertebral tenderness Extremity Exam: normal inspection, normal range of motion, pelvis stable, other, No parasthesia, No paralysis (No upper extremity numbness tingling or weakness. No paresthesias.) Neurologic Exam: alert, oriented x 3, cooperative, normal mood/affect, sensation nml, No motor deficits Skin Exam: normal color, warm, dry, No rash Lymphatic Exam: No adenopathy SpO2 Interpretation: normal SpO2: 97 O2 Delivery: Room Air - Course Nursing assessment & vital signs reviewed: Yes Ordered Tests: Medication Summary Discontinued Medications Generic Name Dose Route Start Last Admin Trade Name Freq PRN Reason Stop Dose Admin Ketorolac Tromethamine 60 mg 05/02/21 18:11 05/02/21 18:25 Ketorolac Tromethamine 30 Mg/Ml Inj IM 05/02/21 18:12 60 mg STAT ONE Administration Ketorolac Tromethamine Confirm 05/02/21 18:23 Ketorolac Tromethamine 30 Mg/Ml Inj Administered 05/02/21 18:24 Dose 60 mg .ROUTE .[facility]-MED ONE - Progress Progress: improved Progress Note: Patient reassessed. Pain improved after administration of Toradol. A right upper extremity sling was applied to decrease muscle tension at the right cervical paraspinal muscle. Patient is neurovascularly intact distally. Patient will follow up with her primary provider on Friday, May 07 as currently scheduled. Patient understand that she needs to rest. No heavy lif ting. No repetitive motion. A prescription for Toradol was forwarded to patient's pharmacy. Portions of this note were created with voice recognition technology. There may be grammatical, spelling, punctuation or sound alike errors 05/02/21 18:53 Counseled pt/family regarding: diagnosis, need for follow-up, rad results - Departure Departure Disposition: Home Clinical Impression: Muscle strain, Right cervical paraspinal muscle strain Condition: Stable Critical Care Time: No Referrals: AP PORRAS [Primary Care Provider] - Follow up/PCP as directed Additional Instructions: Discharge/Care Plan LUDIN GUNDERSON was seen on 05/02/21 in the Emergency Room. The patient was counseled regarding Diagnosis,Lab results, Imaging studies, need for follow up and when to return to the Emergency Room. Prescriptions given: Discharge Note I have spoken with the patient and/or caregivers. I have explained the patient's condition, diagnosis and treatment plan based on the information available to me at this time. I have answered the patient's and/or caregiver's questions and add ressed any concerns. The patient and/or caregivers have as good understanding of the patient's diagnosis, condition and treatment plan as can be expected at this point. The vital signs have been stable. The patient's condition is stable and appropriate for discharge from the emergency department. The patient will pursue further outpatient evaluation with the primary care physician or other designated or consulting physician as outlined in the discharge instructions. The patient and/or caregivers are agreeable to this plan of care and follow-up instructions have been explained in detail. The patient and/or caregivers have received these instruction. The patient/and or caregivers are aware that any significant change in condition or worsening of symptoms should prompt an immediate return to this or the closest emergency department or call 911. Prescriptions: Ketorolac Tromethamine [Toradol] 10 mg PO TID 5 Days #15 tablet
== END 2021-05-02 19:02 | disposition home or self-care (01) ==
LOC: ED 17:35
DX: S16.1XXA Strain of muscle, fascia and tendon at neck level, initial encounter (principal)
CPT/HCPCS: 96372; 99284; J1885

== ENCOUNTER 2024-06-14 21:04 | Emergency (ER) | payer OTHER ==
[2024-06-14 21:19] VITALS: TEMP 98.5
--- NOTE | 2024-06-14 21:21 | ERPHSYRPT ---
- History of Present Illness Time Seen by Provider: 06/14/24 21:21 Source: patient, family Exam Limitations: no limitations Physician History: This is an obese 39-year-old white female patient of Dr. Paz who also sees Dr. Valentine as her clinical trial specialist and presents with intermittent, morning loss of hearing out of the left ear. There is been no pain present. She also states in the last week there has been episodes of "hot face" on the right side after eating. Patient does not have a sore throat. She denies chest pain. She denies shortness of breath. She does have low back pain. She is approximately 34 weeks . Patient also states she feels as though may be she is having contractions. Timing/Duration: intermittent, weeks (1) Severity: mild ENT Location: ear (L), facial (Right facial redness and warmth after eating) Prearrival Treatment: no prearrival treatment Modifying Factors: Improves With: nothing Associated Symptoms: hearing loss (Intermittently typically in the morning and as the day progresses she is hearing much better), other Allergies/Adverse Reactions: shellfish derived Allergy (Intermediate, Verified 06/14/24 21:45) Hives Home Medications: Pnv No.95/Ferrous Fum/Folic AC [ Caplet] 1 tab PO DAILY 06/14/24 [History] Hx Tetanus, Diphtheria Vaccination/Date Given: No Hx Influenza Vaccination/Date Given: No Hx Pneumococcal Vaccination/Date Given: No Travel Risk - International Travel Have you traveled outside of the country in past 3 weeks: No - Emerging Infectious Disease Are you exhibiting symptoms associated with any current EIDs: No - Review of Systems Constitutional: No Symptoms Eyes: No Symptoms Ears, Nose, & Throat: Hearing Changes (Left ear typically in the morning) Respiratory: No Symptoms Cardiac: No Symptoms Abdominal/Gastrointestinal: No Symptoms Genitourinary Symptoms: Musculoskeletal: Back Pain (Neurolyse low back pain), No Injury Skin: No Symptoms Neurological: No Symptoms Psychological: No Symptoms Endocrine: No Symptoms Hematologic/Lymphatic: No Symptoms Immunological/Allergic: No Symptoms All Other Systems: Reviewed and Negative - Past Medical History Pertinent Past Medical History: No Neurological History: No Pertinent History ENT History: No Pertinent History Cardiac History: No Pertinent History Respiratory History: No Pertinent History Endocrine Medical History: No Pertinent History Musculoskeletal History: No Pertinent History GI Medical History: No Pertinent History History: No Pertinent History Psycho-Social History: No Pertinent History Female Reproductive Disorders: No Pertinent History - Past Surgical History Past Surgical History: Yes Neuro Surgical History: No Pertinent History Cardiac: No Pertinent History Respiratory: No Pertinent History Gastrointestinal: Cholecystectomy Genitourinary: No Pertinent History Musculoskeletal: No Pertinent History Female Surgical History: Section, Tubal Ligation, Other Other Surgical History: LEAP procedure folowing , - Female History Hx Last Menstrual Period: mar 03 2013 - Social History Smoking Status: Former smoker How long have you smoked: FORMER Exposure to second hand smoke: No Drug Use: none Patient Lives Alone: No - Nursing Vital Signs Nursing Vital Signs: Initial Vital Signs Temperature 98.5 F 06/14/24 21:18 Pulse Rate 103 H 06/14/24 21:18 Respiratory Rate 20 06/14/24 21:18 Blood Pressure 181/111 06/14/24 21:18 O2 Sat by Pulse Oximetry 99 06/14/24 21:18 Pain Scale Pain Intensity 4 - Physical Exam General Appearance: no apparent distress, alert, anxiety, obese Eye Exam: bilateral eye: normal inspection, PERRL, EOMI Ear Exam: right ear: canal normal, left ear: other (Deep in the ear canal there appears to be a significant amount of cerumen. There does not appear to be an infection), bilateral ear: auricle normal, TM normal Nasal Exam: normal inspection Throat Exam: normal, pharynx normal, moist mucus membranes, No dental tenderness Neck Exam: normal inspection, non-tender, supple, full range of motion, trachea midline Cardiovascular/Respiratory Exam: chest non-tender, normal breath sounds, regular rate/rhythm, heart sounds normal, no respiratory distress Abdominal Exam: non-tender Neurologic Exam: alert, oriented x 3, cooperative, mainframe consultant II-XII nml as tested, nml cerebellar function, nml station & gait, sensation nml Skin Exam: normal color, warm, dry SpO2 Interpretation: normal SpO2: 99 O2 Delivery: Room Air - Course Nursing assessment & vital signs reviewed: Yes Ordered Tests: Active Orders 24 hr Category Date Time Status IV Insertion STAT Care 06/14/24 22:03 Active ACO SDOH Referral ONCE Cons 06/14/24 21:44 Active CBC W DIFF Stat Lab 06/14/24 21:55 Completed CMP Stat Lab 06/14/24 21:55 Completed CULTURE,URINE Stat Lab 06/14/24 21:40 Received LDH-LACTATE DEHYDROGENASE Stat Lab 06/14/24 23:05 Ordered UA W/RFX UR CULTURE Stat Lab 06/14/24 21:40 Completed Uric Acid Stat Lab 06/14/24 23:05 Ordered Urine Protein/Creatinine Ratio [TP/CR Urine Ratio] Stat Lab 06/14/24 Ordered Medication Summary Generic Name Dose Route Start Last Admin Trade Name Freq PRN Reason Stop Dose Admin Ceftriaxone Sodium 1 gm in 100 mls @ 200 mls/hr 06/14/24 22:54 Rocephin 1 Gm / 100 Ml Nacl IV 06/14/24 23:23 STAT ONE Discontinued Medications Generic Name Dose Route Start Last Admin Trade Name Freq PRN Reason Stop Dose Admin Ceftriaxone Sodium Confirm 06/14/24 23:01 Rocephin 1 Gm / 100 Ml Nacl Administered 06/14/24 23:02 Dose 1 gm in 100 mls @ ud IV .STK-MED ONE Labetalol HCl 10 mg 06/14/24 22:56 Labetalol Hcl 20 Mg/4 Ml Disp.Syringe IV 06/14/24 22:57 STAT ONE Labetalol HCl Confirm 06/14/24 23:01 Labetalol Hcl 20 Mg/4 Ml Disp.Syringe Administered 06/14/24 23:02 Dose 20 mg IV .STK-MED ONE Lab/Rad Data: Laboratory Result Diagrams 06/14/24 21:55 06/14/24 21:55 Laboratory Results 06/14/24 06/14/24 06/14/24 Range/Units 21:55 21:55 21:40 WBC 8.1 (3.98-10.04) x10^3/uL RBC 3.81 L (3.93-5.22) x10^6/uL Hgb 11.2 (11.2-15.7) g/dL Hct 33.7 L (34.1-44.9) % MCV 88.5 (79.4-94.8) fL MCH 29.4 (25.6-32.2) pg MCHC 33.2 (32.2-35.5) g/dL RDW 13.1 (11.7-14.4) % Plt Count 167 L (182-369) x10^3/uL MPV 13.3 H (9.4-12.3) fL Gran % 63.1 (34.0-71.1) % Immature Gran % (Auto) 0.2 (0.001-0.429) % Nucleat RBC Rel Count 0.0 (0.00-0.2) % Eos # (Auto) 0.04 (0.04-0.36) x10^3/uL Immature Gran # (Auto) 0.02 (0.001-0.031) x10^3u/L Absolute Lymphs (auto) 2.33 (1.18-3.74) x10^3/uL Absolute Monos (auto) 0.57 (0.24-0.86) x10^3/uL Absolute Nucleated RBC 0.00 (0.00-0.012) x10^3u/L Lymphocytes % 28.9 (19.3-51.7) % Monocytes % 7.1 (4.7-12.5) % Eosinophils % 0.5 L (0.7-5.8) % Basophils % 0.2 (0.1-1.2) % Absolute Granulocytes 5.08 (1.56-6.13) x10^3/uL Basophils # 0.02 (0.01-0.08) x10^3/uL Sodium 134 L (135-145) mmol/L Potassium 4.1 (3.5-5.1) mmol/L Chloride 107 (98-107) mmol/L Carbon Dioxide 22 (22-30) mmol/L Anion Gap 9.2 (5-15) MEQ/L BUN 8 (7-17) mg/dL Creatinine 0.62 (0.52-1.04) mg/dL Estimated GFR 116.8 ML/MIN Glucose 110 H (74-106) mg/dL Calcium 8.7 (8.4-10.2) mg/dL Total Bilirubin 0.30 (0.2-1.3) mg/dL AST 33 (14-36) U/L ALT 18 (0-35) U/L Alkaline Phosphatase 130 H (38-126) U/L Serum Total Protein 6.6 (6.3-8.2) g/dL Albumin 3.2 L (3.5-5.0) g/dL Urine Color Dark Yellow A (Yellow) Urine Appearance Cloudy A (Clear) Urine pH 6.0 (4.6-8.0) Ur Specific [place] >=1.030 A (1.005-1.030) Urine Protein >=1000 A (Negative) Urine Glucose (UA) Negative (Negative) mg/dL Urine Ketones Trace A (Negative) Urine Blood Trace (Negative) Urine Nitrite Negative (Negative) Urine Bilirubin Small A (Negative) Urine Urobilinogen 1.0 A (0.2) mg/dL Ur Leukocyte Esterase Moderate A (Negative) U Hyaline Cast (Auto) None Seen (0-2) /LPF Urine Microscopic RBC 3-5 (0-5) /HPF Urine Microscopic WBC 11-20 A (0-5) /HPF Ur Epithelial Cells Moderate A (None Seen) /HPF Urine Bacteria Moderate A (None Seen) /HPF Urine Trichomonas Rare A (None Seen) /HPF Urine Culture Reflexed YES (NO) - Progress Progress: improved, re-examined Progress Note: 06/14/24 22:50 My medical decision making and the assignment of moderate complexity to this patient's medical issue today is based on review of the patient's past medical history, review the patient's medication list, reviewed patient drug allergy list, history present illness and physical findings on examination. The workup in this patient includes placement of an intravenous line, CBC CMP urinalysis. Differential diagnosis includes but is not limited to hearing loss secondary to hypertension, left ear canal cerumen, hormonal changes. Hypertension may be secondary to hypertension of including preeclampsia. Patient's back pain is likely muscle skeletal but could be due to a urinary tract infection. 06/14/24 23:09 I interpreted the patient's laboratory data results. The patient appears to be preeclamptic and has a urinary tract infection as well as dehydration. I spoke with Dr. Haney, who is the clinical trial specialist on-call. He requested that I I have lab run an LDH, uric acid and a urine protein/creatinine ratio. I have ordered those additional studies. I also provided the patient with a 10 mg intravenous dose of labetalol and 1 g intravenous dose of Rocephin. We will discharge the patient from the emergency department and patient will be reregistered to the OB department. Dr. Haney is aware this patient and agrees. Discussed with : Sujata Counseled pt/family regarding: lab results, diagnosis, need for follow-up Medical Desision Making - Diagnostic Testing Diagnostic test were ordered, analyzed, and reviewed by me: Yes - Risk of complications The pt has a high risk of morbidity or mortality based on: Decision regarding hospitilization or escalation of hosp level of care - Departure Departure Disposition: Home Clinical Impression: Preeclampsia, Proteinuria, Urinary tract infection Condition: Fair Critical Care Time: Yes Critical Care Time(excluding separately billable procedures): Critical 30-74 mins (45) Referrals: DIEGO PAZ MD [Primary Care Provider] - Follow up/PCP as directed
[2024-06-14 22:01] LABS: Absolute Neutrophil Ct (ANC) 5.08 x10^3/uL (1.56-6.13); BASOPHIL % 0.2 % (0.1-1.2); Basophil (Absolute #) 0.02 x10^3/uL (0.01-0.08); Eosinophil % 0.5 % (0.7-5.8); Eosinophil (Absolute #) 0.04 x10^3/uL (0.04-0.36); Hematocrit 33.7 % (34.1-44.9); Hemoglobin 11.2 g/dL (11.2-15.7); IMMATURE GRAN # 0.02 x10^3u/L (0.001-0.031); IMMATURE GRAN % 0.2 % (0.001-0.429); Lymphocyte (Absolute #) 2.33 x10^3/uL (1.18-3.74); Lymphocytes % 28.9 % (19.3-51.7); Mean Cell Volume 88.5 fL (79.4-94.8); Mean Corpuscular Hemoglobin 29.4 pg (25.6-32.2); Mean Corpuscular Hgb Concent. 33.2 g/dL (32.2-35.5); Mean Platelet Volume 13.3 fL (9.4-12.3); Monocyte (Absolute #) 0.57 x10^3/uL (0.24-0.86); Monocytes % 7.1 % (4.7-12.5); Neutrophil % 63.1 % (34.0-71.1); Platelet Count 167 x10^3/uL (182-369); Red Blood Count 3.81 x10^6/uL (3.93-5.22); Red Cell Distribution Width 13.1 % (11.7-14.4); White Blood Count 8.1 x10^3/uL (3.98-10.04)
[2024-06-14 22:13] LABS: ALBUMIN 3.2 g/dL (3.5-5.0); ANION GAP 9.2 MEQ/L (5-15); BILIRUBIN,TOTAL 0.3 mg/dL (0.2-1.3); Calcium 8.7 mg/dL (8.4-10.2); Creatinine 1 0.62 mg/dL (0.52-1.04); EST GLOMERULAR FILTRATION RATE 116.8 ML/MIN; Potassium 4.1 mmol/L (3.5-5.1); Total Protein 6.6 g/dL (6.3-8.2)
[2024-06-14 22:16] LABS: Appearance Cloudy (Clear); Bilirubin Small (Negative); Blood Trace (Negative); Epithelial Cells Moderate /HPF (None Seen); Glucose, Urine Negative (Negative); Ketones Trace (Negative); Leukocyte Esterase Moderate (Negative); Nitrite Negative (Negative); Protein,Urine Dip >=1000 (Negative); Specific Gravity >=1.030 (1.005-1.030)
[2024-06-14 22:18] LABS: Bacteria Moderate /HPF (None Seen); Hyaline Casts None Seen /LPF (0-2); Trichomonas Rare /HPF (None Seen)
[2024-06-14] MEDS ORDERED: ROCEPHIN 1 GM / 100 ML NaCl 1 GM/100 ML IVPB IV ONE (23:01)
[2024-06-14] MEDS ORDERED: TRANDATE 20 MG/4 ML SYRINGE IV ONE (23:01)
[2024-06-14 23:09] VITALS: RESP 18
[2024-06-14] MEDS: TRANDATE 20 MG/4 ML SYRINGE IV ONE (23:10)
[2024-06-14] MEDS: ROCEPHIN 1 GM / 100 ML NaCl 1 GM/100 ML IVPB IV ONE (23:13)
[2024-06-14 23:16] LABS: Uric Acid 6.8 mg/dL (2.6-6.0)
[2024-06-14 23:20] VITALS: O2SAT 97
[2024-06-14 23:32] VITALS: BP 177/122; PULSE 85
[2024-06-15 00:08] LABS: Creatinine, Urine Random 299.3 mg/dl; Protein Creatinine Ratio, Ran. 3.05 mg/mg (0.0-0.15)
[2024-06-15] MEDS ORDERED: TRANDATE 20 MG/4 ML SYRINGE IV ONE (00:52)
== END 2024-06-14 23:43 | disposition home or self-care (01) ==
LOC: ED 21:04
DX: O14.93 Unspecified pre-eclampsia, third trimester (principal); O23.43 Unspecified infection of urinary tract in pregnancy, third trimester; N39.0 Urinary tract infection, site not specified; Z3A.34 34 weeks gestation of pregnancy; R80.9 Proteinuria, unspecified; Z59.19 Other inadequate housing
CPT/HCPCS: 36415; 80053; 81001; 82570; 83615; 84156; 84550; 85025; 87086; 96372; 96374; 99284; 99291; J0696

== ENCOUNTER 2024-06-14 23:36 | Observation (INO) | payer OTHER ==
[2024-06-15] MEDS ORDERED: TRANDATE 100 MG/20 ML MDV FOR DRIP IV ONE (00:16)
[2024-06-15] MEDS: TRANDATE 100MG/20 ML MDV IV ONE (00:22)
[2024-06-15] MEDS ORDERED: Magnesium Sulfate 40 Gm/1000 Ml H2O Premix*** 1,000 ML IV ONE (00:32)
[2024-06-15] MEDS ORDERED: Celestone Soluspan 6MG/ML ONE ×2 (00:32→00:49)
[2024-06-15] MEDS: TRANDATE 100 MG/20 ML MDV FOR DRIP IV PRN (00:35)
[2024-06-15] MEDS ORDERED: Lactated Ringers 1,000 ML IV ONE (00:39)
[2024-06-15] MEDS: Lactated Ringers 1,000 ML IV SCH (00:40)
[2024-06-15] MEDS: MAGNESIUM SULFATE 40 GM/1000 ML IV SCH (00:43)
[2024-06-15] MEDS ORDERED: TRANDATE 100 MG/20 ML MDV FOR DRIP IV PRN (00:46)
[2024-06-15] MEDS: Celestone Soluspan 6MG/ML IM ONE (00:51)
[2024-06-15] MEDS: Magnesium Sulfate 40 Gm/1000 Ml H2O Premix*** 1,000 ML IV SCH (01:03)
[2024-06-15 01:18] VITALS: TEMP 98.2
[2024-06-15 01:19] LABS: Amphetamine,Urine NEGATIVE (NEGATIVE); Barbiturate,Urine NEGATIVE (NEGATIVE); Benzodiazepine,Urine NEGATIVE (NEGATIVE); Cocaine,Urine NEGATIVE (NEGATIVE); Methadone,Urine NEGATIVE (NEGATIVE); Opiate,Urine NEGATIVE (NEGATIVE); PCP,Urine NEGATIVE (NEGATIVE); THC,Urine NEGATIVE (NEGATIVE)
[2024-06-15 01:29] LABS: INR 0.87 (0.8-3.0); PROTIME 9.6 SECONDS (9.4-12.5); PTT 22.7 SECONDS (25.1-36.5)
[2024-06-15] MEDS ORDERED: APRESOLINE 20 MG/ML INJ ONE (01:50)
[2024-06-15] MEDS: APRESOLINE 20 MG/ML INJ IV ONE ×2 (01:52→02:43)
[2024-06-15 02:30] VITALS: O2SAT 97
[2024-06-15 03:22] VITALS: BP 149/72; PULSE 93; RESP 98
== END 2024-06-15 03:53 ==
LOC: OBSVTOIN 23:36 → INTOOBSV 23:36 → OB 23:36
PROVIDERS: ADMIT Obstetrics & Gynecology; ATTEND Obstetrics & Gynecology
DX: Z34.83 Encounter for supervision of other normal pregnancy, third trimester (principal); Z3A.34 34 weeks gestation of pregnancy; Z59.19 Other inadequate housing
CPT/HCPCS: 36415; 80307; 83735; 85610; 85730; 87653; G0378; J0360; J0702